=== PATIENT | male | born 1985 | race Caucasian/White ===

== ENCOUNTER 2020-12-22 11:40 | Inpatient (IN) | payer OTHER, SELFPAY ==
[2020-12-22] VITALS (11 sets, daily range): BP systolic 108–141; BP diastolic 73–98; PULSE 108–134; RESP 16–18; TEMP 36.2–36.9; O2SAT 96–100; BMI 17.6
--- NOTE | ~2020-12-22 | US_ITS ---
US abdomen limited DATE: 12/22/2020 13:35 INDICATION: Elevated liver function tests. Hepatitis C. TECHNIQUE: Real-time imaging and Doppler analysis of liver, pancreas, gallbladder areas COMPARISON: None FINDINGS: Coarsened echotexture of liver. No discrete hepatic mass lesion is noted. There is normal h epatopedal portal venous flow direction. There is sludge and/or debris in the dependent gallbladder. No gallstones or gallbladder wall thicken ing or abnormal pericholecystic fluid collection are evident. Negative sonographic Henson's sign. The common bile duct measures 3.7 mm, normal. No pancreatic mass lesion is evident. IMPRESSION: Nonspecific coarsened echotexture of the liver Sludge and/or debris in the dependent gallbladder; negative sonographic Henson's sign Reviewed, dictated and finalized at [facility] Reviewed, dictated and finalized at [facility] IMPRESSION: Nonspecific coarsened echotexture of the liver Sludge and/or debris in the dependent gallbladder; negative sonographic Henson' s sign
--- NOTE | ~2020-12-22 | CT_ITS ---
EXAMINATION: CTA chest PE abdomen pel DATE: 12/22/2020 17:37 INDICATION: Tachycardia. Abdominal pain. TECHNIQUE: Computed tomography (CT) pulmonary angiogram of the chest was performed with 100 mL Omnipa que-350 intravenous contrast. Additional 3D reconstructions utilizing coronal maximum intensity proje ction (MIP) were performed. CT of the abdomen and pelvis was performed with intravenous contrast util izing the same contrast bolus following a short delay. Automated exposure control and iterative recon struction technique were employed. The dose-length product was 400.49 mGy-cm. COMPARISON: None FINDINGS: Chest: Good contrast opacification of the pulmonary arteries. There is moderate streak artifact from dense c ontrast in the superior vena cava and right atrium. Mild to moderate scattered respiratory motion art ifact. Together this decreases sensitivity in the subsegmental pulmonary arteries particularly in the bilateral lower lung zones. No pulmonary embolus and. 8 x 6 mm left upper lobe nodule. No other airs pace opacities, pulmonary edema or pleural effusion. Heart size is normal. No pericardial effusion. N o pathologically enlarged thoracic lymphadenopathy. There is diffuse wall thickening along the mid to distal esophagus suspicious for esophagitis. Mild thoracic spondylosis. Abdomen/pelvis: Diffuse hepatic steatosis. Gallbladder, spleen, pancreas, bilateral adrenal glands and right kidney a re normal. 11 mm left renal cyst. Bowels including the appendix are normal. Latter is normal. Prostat omegaly measuring 4.9 x 3.4 cm. No free intraperitoneal gas or fluid. No pathologically enlarged abdo sara or pelvic lymphadenopathy. Mild lumbar spondylosis. IMPRESSION: 1. No pulmonary embolism. Sensitivity is significantly decreased in some of the subsegmental pulmonar y arteries particularly at the lung bases due to primarily to motion artifact. 2. Comment diffuse wall thickening of the mid to distal esophagus consistent with esophagitis. 3. Diffuse hepatic steatosis. 4. Prostatomegaly. Reviewed, dictated and finalized at [facility] IMPRESSION: 1. No pulmonary embolism. Sensitivity is significantly decreased in some of the subsegmental pulmonary arteries particularly at the lung bases due to primaril y to motion artifact. 2. Comment diffuse wall thickening of the mid to distal esophagus consistent wi th esophagitis. 3. Diffuse hepatic steatosis. 4. Prostatomegaly.
[2020-12-22 12:06] LABS: Basophils Percent Auto 0.6 % (0.2-1.2); Hemoglobin 14.7 g/dL (14.0-18.0); Immature Granulocyte Absolute 0.01 K/mm3 (0.00-0.031); Immature Granulocyte Percent A 0.2 % (0-0.5); Lymphocytes Absolute Auto 0.71 K/mm3 (0.9-3.2); Lymphocytes Percent Auto 15.4 % (18.3-44.2); Mean Corpuscular HGB Conc 35.9 g/dl (32-36); Mean Corpuscular Hemoglobin 34.2 pg (26-34); Mean Corpuscular Volume 95.3 fl (80-100); Mean Platelet Volume 10.3 fl (7.4-10.4); Monocytes Absolute Auto 0.6 K/mm3 (0.1-0.6); Monocytes Percent Auto 13.4 % (2.6-8.5); Neutrophils Absolute Auto 3.3 K/mm3 (1.3-6.7); Neutrophils Percent Auto 70.4 % (45.5-73.1); Platelet Count Result 88 k/mm3 (150-375); Red Cell Distribution Width 12.5 % (11.5-14.5); White Blood Count 4.6 K/mm3 (4.5-10.0)
[2020-12-22 12:43] LABS: Alanine Aminotransferase 95 U/L (4-50); Albumin Level > 6.0 g/dL (3.5-5.1); Alkaline Phosphatase 93 U/L (38-126); Anion Gap 37 mmol/L (8-16); Aspartate Amino Transferase 256 U/L (17-59); Bilirubin,Total 3.2 mg/dL (0.2-1.3); Blood Urea Nitrogen 22 mg/dL (9-20); Calcium 11.9 mg/dL (8.4-10.2); Carbon Dioxide 18 mmol/L (22-30); Chloride 81 mmol/L (98-107); Estimated CRCL calculation 71 ml/min; Estimated Glomerular Filt Rate > 60; Glucose 151 mg/dL (65-110); Lipase 422 U/L (23-300); Potassium 3.9 mmol/L (3.4-5.0); Sodium 136 mmol/L (137-145)
--- NOTE | 2020-12-22 12:45 | ED.NAVMDI ---
HPI - Nausea/Vomiting/Diarrhea General Chief complaint: Nausea/Vomiting/Diarrhea Stated complaint: vomiting Time Seen by Provider: 12/22/20 12:36 Source: patient Mode of arrival: ambulatory Limitations: no limitations History of Present Illness HPI Narrative: 35-year-old male history of alcohol abuse, alcohol withdrawal brought in by family for intractable nausea vomiting. Patient states last drink last night. Does have a history of withdrawals. Does complain of some dark vomiting. No melena. No abdominal pain. Unable to keep down food or fluids. Arrives pale diaphoretic and tachycardic answering all questions without difficulty MD elicited complaint: nausea, vomiting and diarrhea Pertinent past history: alcohol abuse Onset (ago): day(s) (2) Description of vomiting: continuous Associated nausea: Yes Associated abdominal pain: No Exacerbating factors: eating and alcohol intake Relieving factors: none Context: alcohol abuse and other (States recently diagnosed with hepatitis C) Associated symptoms: diaphoresis, malaise, nausea/vomiting and anxiety Treatment prior to arrival: none Related Data Allergies Allergy/AdvReac Type Severity Reaction Status Date / Time No Known Allergies Allergy Verified 12/24/20 14:25 Review of Systems Review of Systems: CONSTITUTIONAL: no fever, no weight loss, no confusion EYES: no vision changes, no eye pain ENT: no rhinorrhea, no sore throat, no difficulty swallowing CARDIOVASCULAR: no chest pain, no leg edema, positive for palpitations RESPIRATORY: no cough, no shortness of breath, no hemoptysis GASTROINTESTINAL: no abdominal pain, no nausea, positive vomiting, psoitive diarrhea GENITOURINARY: no flank pain, no dysuria, no hematuria SKIN: no rash, no jaundice, diaphoretic MUSCULOSKELETAL: no back pain, no trauma. NEUROLOGIC: No headache, no dizziness, no focal weakness PSYCHIATRIC: No hallucinations, no suicidal ideation PMFSH Past Medical History Medical History (Updated 12/25/20 @ 16:10 by Sergio Heard MD) Alcoholic hepatitis Coffee ground emesis Erosive esophagitis Hepatitis C History of heroin abuse Thrombocytopenia Tobacco abuse Surgical History Surgical History No pertinent past surgical history Family History Family History Mother Hypercholesterolemia Father Esophageal cancer Social History Social History Social History: the patient is currently unemployed and lives with his girlfriend. He has no children. Patient does not have a durable power security management specialist for healthcare. The patient desires to be a full code. The patient has a history of heroin use. Occasionally uses marijuana. Patient stated that he drinks a pt vodka every day. Smoking packs per day: 0.5 Smoking cigarettes per day: 10.0 Years smoked: 6 Smoking pack-years: 3.00 Smoking status: Light tobacco smoker Tobacco type: cigarettes Second hand tobacco smoke exposure: Yes Alcohol intake: current Substance use: current Substance use type: marijuana Other substance usage details: Drinks 1 pint of vodka daily, sometimes more Spiritual care concerns: No Exam Narrative: General: alert, afebrile, answering all questions appropriately Head: normocephalic, atraumatic Eyes: EOMI bilaterally, anicteric, no injection ENT: dry mucous membranes, oropharynx patent, no rhinorrhea Neck: supple, trachea midline, no JVD Chest: equal chest rise bilaterally, no chest wall trauma noted Lungs: clear to auscultation bilaterally, respirations unlabored CV: tachycardia, no CINDY B, calf size equal bilaterally Abd: soft, non-distended, non-tender, no rebound, no gaurding, negative Henson's Guaiac negative, yellow stool. EXT: no deformity noted, moving all extremities equally Skin: warm, diaphoretic, pale Neuro: alert, oriented
[2020-12-22] MEDS: SODIUM CHLORIDE 0.9% IV 1,000 ML 999 ML IV CONT ×2 (12:56→14:35)
[2020-12-22] MEDS: ONDANSETRON INJ 4 MG/2 ML VIAL IV PUSH (12:57)
[2020-12-22] MEDS: diazePAM INJ (*CRX) 10 MG/2 ML SYRINGE IV PUSH ×2 (13:04→14:36)
[2020-12-22 13:10] LABS: Ethanol 210 mg/dL (<10)
[2020-12-22 13:22] LABS: Partial Thromboplastin Time 25.3 SECONDS (22.3-36.8)
[2020-12-22] MEDS: METOCLOPRAMIDE HCL INJ 10 MG/2 ML VIAL IV PUSH (14:44)
[2020-12-22] MEDS: diphenhydrAMINE HCl INJ 50 MG/ML VIAL 25 MG IV PUSH (14:45)
--- NOTE | 2020-12-22 15:16 | ECG_ITS ---
Measurements Intervals [place] Rate: 116 P: 69 UT: 182 QRS: 168 QRSD: 100 T: 61 QT: 313 QTc: 436 Interpretive Statements SINUS TACHYCARDIA RIGHT AXIS DEVIATION POOR R WAVE PROGRESSION, ANTERIOR LEADS ABNORMAL ECG Electronically Signed On 12-22-2020 17:21:11 CDT by Trae Kenney D.O.
--- NOTE | 2020-12-22 15:16 | PC.NURSE ---
I did not obtain the EKG on this pt. at 1202 or present it to a
--- NOTE | 2020-12-22 16:29 | ECG_ITS ---
Measurements Intervals [place] Rate: 116 P: 57 MN: 152 QRS: 204 QRSD: 96 T: 68 QT: 313 QTc: 436 Interpretive Statements SINUS TACHYCARDIA RIGHT AXIS DEVIATION POOR R WAVE PROGRESSION, ANTERIOR LEADS BASELINE WANDER- I, II ABNORMAL ECG Electronically Signed On 12-24-2020 15:23:56 CDT by Trae Kenney D.O.
[2020-12-22 16:46] LABS: Lactic Acid Reflex 3.6 mmol/L (0.7-2.1)
[2020-12-22 17:26] LABS: Add Urine Microscopic? YES; Appearance Urine Clear (Clear); Bilirubin Urine Negative (Negative); Blood Urine 2+ (Negative); Color Urine Amber (Yellow); Glucose Urine UA Negative (Negative); Hyaline Casts Urine 20-29 /lpf; Ketones Urine 2+ mg/dL (Negative); Leukocyte Esterase Ur Negative LEU/UL (Negative); Mucus Urine Rare /lpf; Nitrate Urine Negative (Negative); Protein Urine 3+ mg/dL (Negative); Specific Grav Ur 1.026 (1.001-1.035); Squamous Epithelial Cell Urine Rare /hpf (Few); WBC Urine 0-3 /hpf
[2020-12-22] MEDS: PANTOPRAZOLE SODIUM IV 40 MG VIAL 80 MG IV PUSH (19:18)
[2020-12-22 19:36] LABS: Reflex Lactic Acid Yes or No Add Lactic
--- NOTE | 2020-12-22 21:27 | ADMGEN ---
This patient, Alfred Ernst, was admitted to IMU Room 214-01. Patient/family oriented to hospital policies and general routines including ID bracelet, bed and alarms, visiting hours, pain management, procedures, bathroom and other care routines, personal items, smoking policy, room service/diet, and visiting hours. Information on how to activate the Rapid Response Team has been discussed. Patient/Family are encouraged to report perceived risks to care and to ask questions if they do not understand what they are told or what they should do.
[2020-12-22 21:36] LABS: Lactic Acid 2.8 mmol/L (0.7-2.1)
--- NOTE | 2020-12-22 22:30 | PM.IMHP ---
H&P: HPI History of Present Illness Date/Time: 12/22/20 22:30Thikyle is a 35-year-old male patient who has a history of alcoholism. The patient states that he drinks a pt of alcohol a day. He has been to alcohol rehab in the past. The patient was brought in by his family due to intractable nausea and vomiting. The patient lives with his girlfriend. The patient stated that the last ME drink any alcohol was last night around midnight. He does have a history of alcohol withdrawals. The patient does have hand tremors at this time. The patient also complained of some dark vomiting. The patient denies any esophageal varices. The patient was very pale and diaphoretic and tachycardic. The patient was given IV fluids in the emergency room, Zofran IV Valium IV, Reglan, Benadryl, Protonix, and Zosyn. Chest CTA was read as no pulmonary embolus. Sensitivity is significantly decrease in some of the subsegmental pulmonary arteries particularly at the lung bases due to primarily due to motion artifact. Comment diffuse wall thickening of the mid and distal esophagus consistent with esophagitis. Diffuse hepatic steatosis. Prostatomegaly. The patient also tells me that he has hepatitis-C and that he has not gone for any treatment as of yet but he has an appointment with a specialist For treatment. Ultrasound of the abdomen was read as nonspecific coarsened echotexture of the liver. Sludge or debris in the dependent gallbladder negative sonographic Henson sign. the patient is being admitted to inpatient services on the date of service of 12/22/2020 Chief Complaint: alcohol withdrawal Review of Systems Review of Systems: All systems reviewed & are unremarkable except as noted in HPI and below Constitutional: Constitutional: Reports as per HPI and Reports no additional constitutional complaints Eyes: Eyes: Reports as per HPI and Reports no additional eye complaints ENT: Reports system reviewed and no additional complaints, except as documented and Reports Normal hearing present Cardiovascular: Cardiovascular: Reports no additional cardiovascular complaints Respiratory: Respiratory: Reports no additional respiratory complaints and Reports no additional respiratory complaints Gastrointestinal: Gastrointestinal: Reports as per HPI and Reports no additional gastrointestinal complaints Musculoskeletal: Musculoskeletal: Reports no additional musculoskeletal complaints Integumentary/Breasts: Skin/Breast: Reports system reviewed and no additional complaints, except as docu and Reports as per HPI Neurologic: Reports system reviewed and no additional complaints, except as documented, Reports as per HPI and Reports Normal hearing present Psychiatric: Psychiatric: Reports no additional psychiatric complaints and Reports as per HPI Endocrine: Endocrine: Reports no additional endocrine complaints Hematologic/Lymphatic: Hematologic/Lymphatic: Reports no additional hematologic/lymphatic complaints Allergic/Immunologic: Allergic/Immunologic: Reports no additional allergic/immunologic complaints PMF Past Medical History Medical History (Updated 12/22/20 @ 22:40 by Teresa Tee NP) Hepatitis C History of heroin abuse Tobacco abuse Surgical History Surgical History (Updated 12/22/20 @ 22:39 by Teresa Tee NP) No pertinent past surgical history Family History Family History (Updated 12/22/20 @ 22:39 by Teresa Tee NP) Mother Hypercholesterolemia Father Esophageal cancer Social History Social History (Updated 12/22/20 @ 22:40 by Teresa Tee NP) Social History: the patient is currently unemployed and lives with his girlfriend. He has no children. Patient does not have a durable power admitted attorneys for healthcare. The patient desires to be a full code. The patient has a history of heroin use. Occasionally uses marijuana. Patient stated that he drinks a pt vodka every day. Smoking packs per day: 0.5 Smoking cigarette
[2020-12-22] MEDS: THIAMINE HCL INJ 100 MG, FOLIC ACID INJ 1 MG, MULTIVITAMINS-12 INJ VIAL 1 5 ML, MULTIVI... 125 MG IV CONT (23:45)
[2020-12-22] MEDS: LORazepam INJ (*CRX) 2 MG/ML VIAL 1 MG IV PUSH (23:46)
[2020-12-22] MEDS: chlordiazePOXIDE (*CRX) 25 MG CAPSULE PO (23:46)
[2020-12-23] VITALS (19 sets, daily range): BP systolic 127–149; BP diastolic 76–100; PULSE 70–135; RESP 16–20; TEMP 36.1–36.8; O2SAT 95–100
[2020-12-23 00:04] LABS: Glucose Point of Care 170 mg/dl (65-105)
[2020-12-23] MEDS: chlordiazePOXIDE (*CRX) 25 MG CAPSULE PO ×2 (04:22→22:31)
[2020-12-23 04:55] LABS: Basophils Percent Auto 0.5 % (0.2-1.2); Hematocrit 30.6 % (42.0-52.0); Immature Granulocyte Absolute 0.01 K/mm3 (0.00-0.031); Immature Granulocyte Percent A 0.3 % (0-0.5); Lymphocytes Absolute Auto 1.15 K/mm3 (0.9-3.2); Lymphocytes Percent Auto 29.3 % (18.3-44.2); Mean Corpuscular HGB Conc 35.9 g/dl (32-36); Mean Corpuscular Hemoglobin 33.3 pg (26-34); Mean Corpuscular Volume 92.7 fl (80-100); Mean Platelet Volume 10.8 fl (7.4-10.4); Monocytes Absolute Auto 0.7 K/mm3 (0.1-0.6); Monocytes Percent Auto 16.6 % (2.6-8.5); Neutrophils Absolute Auto 2.1 K/mm3 (1.3-6.7); Neutrophils Percent Auto 53.3 % (45.5-73.1); Platelet Count Result 52 k/mm3 (150-375); Red Cell Distribution Width 11.9 % (11.5-14.5); White Blood Count 3.9 K/mm3 (4.5-10.0)
[2020-12-23 05:54] LABS: Albumin Level 4.3 g/dL (3.5-5.1); Alkaline Phosphatase 57 U/L (38-126); Anion Gap 9 mmol/L (8-16); Aspartate Amino Transferase 164 U/L (17-59); Bilirubin Direct 0.3 mg/dL (0-0.3); Bilirubin,Total 3.6 mg/dL (0.2-1.3); Blood Urea Nitrogen 19 mg/dL (9-20); Carbon Dioxide 32 mmol/L (22-30); Chloride 89 mmol/L (98-107); Estimated CRCL calculation 80 ml/min; Estimated Glomerular Filt Rate > 60; Lactate Dehydrogenase 472 U/L (313-618); Potassium 3.3 mmol/L (3.4-5.0); Sodium 130 mmol/L (137-145)
[2020-12-23 06:01] LABS: Lactic Acid Reflex 1.1 mmol/L (0.7-2.1)
[2020-12-23 06:03] LABS: Alanine Aminotransferase 64 U/L (4-50); CRP < 0.5 mg/dL (<1.0); Calcium 9.5 mg/dL (8.4-10.2); Glucose 92 mg/dL (65-110); Lipase 1332 U/L (23-300); Magnesium 2.1 mg/dL (1.6-2.3)
[2020-12-23 06:58] LABS: Phosphorus < 1.0 mg/dL (2.5-4.5)
[2020-12-23] MEDS: NICOTINE (*PBKC) 14 MG PATCH 1 PATCH TRANSDERM (07:53)
[2020-12-23] MEDS: PANTOPRAZOLE SODIUM IV 40 MG VIAL IV PUSH ×2 (07:56→19:37)
[2020-12-23] MEDS: THIAMINE HCL 200 MG/2 ML VIAL 100 MG IV PUSH (07:56)
--- NOTE | 2020-12-23 08:29 | PM.IMPN ---
Progress Note: A&P Additional Plan START OF DOCTOR [facility]?S PROGRESS NOTE Subjective: At the present time the patient offers no complaints. He denies fever, rigors, nausea, vomiting, cough, wheeze, abdominal pain, chest pain, dyspnea, or any other constitutional complaints. I have explained to the patient his current medical condition plan care and I have answered all his questions Objective: General: -Alert -No acute distress -No dyspnea -No tachypnea Heart: -Regular rate -Regular rhythm -No murmurs -No gallops -No rubs Lungs: -No wheeze -No rhonchi -No rales Abdomen: -Normal bowel sounds in all four quadrants -No rebound -No guarding -No tenderness Extremities: -2/4 pulse in all four extremities -No clubbing -No cyanosis -No edema Additional Details / Additional Findings / Exceptions / Miscellaneous: Pertinent Laboratory Results / Pertinent Radiology Results / Pertinent Diagnostic Results / Pertinent Vital Signs: Blood pressure 142/84, white blood count 3.9, hemoglobin 11, platelet count 18666, sodium 130, potassium 3.3, Tobra is 3.6, AST 164, ALT 64, lipase 1332 Assessment / Plan: Alcohol abuse with alcohol withdrawal. Seizure precautions. IV p.r.n. Ativan per [facility] protocol. Vitamin B12 1000 mg p.o. daily plus thiamine 100 mg p.o. daily plus folic acid 1 mg p.o. daily plus multivitamin 1 tab p.o. daily. Patient require referral for alcohol rehabilitation upon discharge Esophagitis. Likely sequelae of history of alcohol abuse. Protonix 40 mg IV q.12 hours plus sucralfate 1 g p.o. q.6 hours. I will follow up on Gastroenterology's findings recommendation Transaminitis. Likely sequelae of history of alcohol abuse in conjunction with hepatitis-C. Will monitor LFTs periodically with CMP along with PT/INR Hepatic steatosis Prostatomegaly. PSA level pending. Outpatient follow-up with Urology upon discharge Hepatitis-C. Outpatient follow-up with Gastroenterology for treatment upon discharge History of heroin abuse. The patient will be counseled regarding hair when this cessation Smoker. Patient counseled regarding smoking cessation. Nicotine patch 14 mg daily Pancytopenia. Likely sequelae of history of alcohol abuse. We will monitor CBC and intermittently. TSH within normal limits. Check free T4, B12, folate, ferritin, iron panel, fecal occult blood Hyponatremia. Likely a sequelae of history of alcohol abuse/beer potomania. Monitor sodium levels intermittently. IV normal saline 100 mL/hour Hypokalemia. Monitor potassium levels intermittently supplemented as necessary Hypophosphatemia. Will monitor phosphorus levels intermittently. Neutra-Phos 1 packet p.o. q.6 hours. Elevated lipase. Clinically no signs/symptoms of pancreatitis. Radiographic studies did not do not demonstrate pancreatitis. Will monitor serum lipase levels intermittently. NPO. IV normal saline 100 mL/hour Microscopic hematuria. Outpatient follow-up with Urology upon discharge DVT prophylaxis. Bilateral CT Disposition: END OF DO[facility]?S PROGRESS NOTE Subjective Date/time seen: 12/23/20 08:29 Objective Data Vital Signs Vital Signs: Vital Signs - 24 hr 12/22/20 11:43 12/22/20 12:37 12/22/20 14:46 Temperature 98.3 F Pulse Rate 134 H 111 H 127 H Pulse Rate [Monitor] Respiratory Rate 18 18 18 Blood Pressure 108/73 134/92 H 127/87 Pulse Oximetry 97 99 100 12/22/20 16:41 12/22/20 21:21 12/22/20 21:24 Temperature 97.2 F L Pulse Rate 108 H 120 H 123 H Pulse Rate [Monitor] Respiratory Rate 18 16 Blood Pressure 141/98 H 132/75 Pulse Oximetry 99 97 12/22/20 21:30 12/22/20 21:36 12/22/20 22:00 Temperature Pulse Rate 126 H Pulse Rate [Monitor] 110 H Respiratory Rate Blood Pressure Pulse Oximetry 97 12/22/20 22:36 12/22/20 23:18 12/23/20 00:00 Temperature 98.4 F Pulse Rate 134 H 92 Pulse Rate [Monitor] 126 H
[2020-12-23] MEDS: SODIUM CHLORIDE 0.9% IV 1,000 ML 100 ML IV CONT ×2 (09:18→18:26)
[2020-12-23] MEDS: THERAPEUTIC MULTIVITAMINS/MINERALS TAB (*BKC) 1 TABLET PO (09:19)
[2020-12-23] MEDS: POTASSIUM CHLORIDE 20 MEQ TABLET 40 MEQ PO (09:19)
[2020-12-23] MEDS: FOLIC ACID 1 MG TABLET PO (09:20)
[2020-12-23] MEDS: THIAMINE HCL 100 MG TABLET PO (09:20)
[2020-12-23] MEDS: CYANOCOBALAMIN 1,000 MCG TABLET 1000 MCG PO (09:20)
[2020-12-23] MEDS: LORazepam INJ (*CRX) 2 MG/ML VIAL 1 MG IV PUSH ×3 (09:28→22:32)
[2020-12-23 09:40] LABS: Iron 143 ug/dL (49-181)
[2020-12-23 09:49] LABS: Percent Iron Saturation 93 % (20-50)
[2020-12-23 09:58] LABS: Free T4 Free Thyroxine 1.06 ng/mL (0.78-2.19)
[2020-12-23 10:38] LABS: Folic Acid > 20.0 ng/mL (2.76->20); Vitamin B12 > 1000.0 pg/mL (239-931)
[2020-12-23] MEDS: ONDANSETRON INJ 4 MG/2 ML VIAL IV PUSH (10:49)
[2020-12-23 11:27] LABS: Ferritin > 2000.00 ng/mL (17.9-464)
[2020-12-23 11:36] LABS: Glucose Point of Care 127 mg/dl (65-105)
[2020-12-23] MEDS: SUCRALFATE 1 GM TABLET PO ×3 (11:53→19:37)
[2020-12-23] MEDS: POTASSIUM/PHOSPHORUS/SODIUM 1.5 GM PACKET 1 PACKET PO ×3 (11:53→22:30)
--- NOTE | 2020-12-23 12:37 | WPDGICN ---
Assessment and Plan Additional Plan GI Consultation Dr. Parra December, This is a 35 year old patient with a history of Hepatitis C (untreated), alcohol abuse and heroin abuse who now presents for evaluation of nausea, vomiting and hematemesis. Patient is seen at the request of the Hospitalist service to evaluate for same. The patient does not have a primary care provider. Patient was admitted with nausea and vomiting beginning 12-22-2020. There was dark material in the emesis. He states this is improving today. He otherwise denies abdominal pain, previous nausea or vomiting, trouble swallowing, bloating, loss of appetite or weight, early satiety, heartburn, diarrhea or constipation, rectal bleeding or melena. Patient denies fever, jaundice, scleral icterus, dark urine, light stool, itching, hot or cold intolerance, chest pain, shortness of breath at rest, light headedness, hematuria, dysuria, new cough or visual changes, easy bruising, tingling of the skin, bone pain or tremors. No history of endocarditis, rheumatic fever, dental prophylaxis, heart valve surgery, bleeding disorder or joint replacement. NKDA. Medications:none. Denies any aspirin, NSAIDS. Social history: smoker, cessation recommended. One pint of vodka daily, last was midnight Dec,. Cessation discussed. Family history: father with esophageal cancer. Physical exam: No lower extremity edema, jaundice, spider angioma, palmar erythema. Skull is normocephalic atraumatic. Sclera are non-icteric. Oropharynx is clear. Neck is supple without thyromegaly. Lungs are clear. Heart is rate and rhythm regular. S1 and S2 normal. Normal active bowel sounds. Non-tender, non-rigid, non-distended without hepatosplenomegaly or masses. No guarding. Rectal is deferred. Neuro is conscious and alert ?3. Labs: 12-23-2020 Hct 31, PTL 52. TBili 3.2 (DBili 0.3), A/P 57, AST 256, ALT 95 Ferritin >2,000. Fe 143, TIBC 153, %sat 93. B12 > 1,000. Folate > 20. TSH 3.7 12-22-2020 Hct 42, PTL 88, TBili 3.2, A/P 93, AST 256, ALT 95 EtOH 210 Imaging: RUQ U/S Hepatic Steatosis CT Hepatic Steatosis Assessment and plan: A. Nausea, vomiting and hematemesis: - Likely M-W tear > varix, ulcer, peptic disease, neoplasm - Nausea and vomiting possibly related to alcohol or other cause - Improved - No active bleed; follow H+H and transfuse prn - PPI - Avoid aspirin, NSAIDS and anticoagulants - EGD in am B. Hepatitis C: evaluation and possible treatment per [facility]. C. Abnormal LFT's and abnormal imaging-liver: - Hepatic Steatosis secondary to alcohol; cessation discussed with the patient - Thrombocytopenia secondary to liver disease; observe - Would like platelets > 50K for EGD - EtOH level high on admit - May need liver biopsy at some point - Follow LFT's for now D. 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 Patient voices understanding, agrees to proceed and provides informed consent. Thank you very much for allowing me to share in the care of your patient. Further recommendations per [facility]. Ernesto Parra M.D. (c) [phone] GI Consult Note Consult date/time: 12/23/20 12:37 HPI: Alfred Ernst is a 35 year old male [facility] Past Medical History Medical History (Updated 12/22/20 @ 22:40 by Teresa Tee NP) Hepatitis C History of heroin abuse Tobacco abuse Surgical History Surgical History (Updated 12/22/20 @ 22:39 by Teresa Tee NP) No pertinent past surgical history Family History Family History (Updated 12/22/20 @ 22:39 by Teresa Tee NP) Mother Hypercholesterolemia Father Esophageal cancer Social History Social History (Updated 12/22/20 @ 22:40
[2020-12-23 17:21] LABS: Amphetamine Screen Urine Negative (Negative); Barbiturate Screen Urine Negative (Negative); Benzodiazepines Screen Urine Positive (Negative); Cannabinoid Screen Urine Positive (Negative); Cocaine Screen Urine Negative (Negative); Methadone Screen Urine Negative (Negative); Opiate Screen Urine Negative (Negative); Phencyclidine Screen Urine Negative (Negative)
[2020-12-23 18:17] LABS: Glucose Point of Care 96 mg/dl (65-105)
[2020-12-23 23:25] LABS: Glucose Point of Care 77 mg/dl (65-105)
[2020-12-24] VITALS (20 sets, daily range): BP systolic 110–156; BP diastolic 67–109; PULSE 40–110; RESP 18–21; TEMP 36.2–37.1; O2SAT 97–100; BMI 19.9
[2020-12-24] MEDS: DEXTROSE 5%/0.9% SOD CHL 1,000 ML 100 ML IV CONT ×2 (00:10→09:56)
[2020-12-24 04:14] LABS: Glucose Point of Care 97 mg/dl (65-105)
[2020-12-24 04:41] LABS: Basophils Percent Auto 0.3 % (0.2-1.2); Eosinophils Percent Auto 0.9 % (0-4.4); Hematocrit 32.2 % (42.0-52.0); Hemoglobin 11.4 g/dL (14.0-18.0); Immature Granulocyte Absolute 0.01 K/mm3 (0.00-0.031); Immature Granulocyte Percent A 0.3 % (0-0.5); Immature Platelet Fraction Pct 10.8 % (0.9-11.2); Lymphocytes Absolute Auto 1.02 K/mm3 (0.9-3.2); Lymphocytes Percent Auto 32.1 % (18.3-44.2); Mean Corpuscular HGB Conc 35.4 g/dl (32-36); Mean Corpuscular Hemoglobin 33.9 pg (26-34); Mean Corpuscular Volume 95.8 fl (80-100); Mean Platelet Volume 10.9 fl (7.4-10.4); Monocytes Absolute Auto 0.3 K/mm3 (0.1-0.6); Monocytes Percent Auto 9.7 % (2.6-8.5); Neutrophils Absolute Auto 1.8 K/mm3 (1.3-6.7); Neutrophils Percent Auto 56.7 % (45.5-73.1); Platelet Count Result 44 k/mm3 (150-375); Red Blood Count 3.36 M/mm3 (4.6-6.20); Red Cell Distribution Width 11.8 % (11.5-14.5); White Blood Count 3.2 K/mm3 (4.5-10.0)
[2020-12-24 04:49] LABS: INR 1.1; Prothrombin Time 13.8 Seconds (11.1-14.7)
[2020-12-24 05:10] LABS: Alanine Aminotransferase 67 U/L (4-50); Albumin Level 3.5 g/dL (3.5-5.1); Alkaline Phosphatase 48 U/L (38-126); Anion Gap 5 mmol/L (8-16); Aspartate Amino Transferase 179 U/L (17-59); Bilirubin,Total 4.6 mg/dL (0.2-1.3); Blood Urea Nitrogen 16 mg/dL (9-20); Calcium 8.6 mg/dL (8.4-10.2); Carbon Dioxide 30 mmol/L (22-30); Chloride 96 mmol/L (98-107); Estimated CRCL calculation 114 ml/min; Estimated Glomerular Filt Rate > 60; Glucose 93 mg/dL (65-110); Potassium 3.2 mmol/L (3.4-5.0); Sodium 131 mmol/L (137-145)
[2020-12-24 05:29] LABS: Phosphorus < 1.0 mg/dL (2.5-4.5)
[2020-12-24] MEDS: SUCRALFATE 1 GM TABLET PO ×3 (05:45→21:32)
[2020-12-24] MEDS: chlordiazePOXIDE (*CRX) 25 MG CAPSULE PO (05:45)
[2020-12-24] MEDS: POTASSIUM/PHOSPHORUS/SODIUM 1.5 GM PACKET 1 PACKET PO ×2 (05:45→16:41)
[2020-12-24 07:06] LABS: Lipase 5226 U/L (23-300)
--- NOTE | 2020-12-24 09:05 | PM.IMPN ---
Progress Note: A&P Additional Plan START OF [facility]?S PROGRESS NOTE Subjective: The patient indicates that he exhibited some rigors overnight had some nausea. Aside from this endorses no complaints. He denies fever, vomiting, cough, wheeze, abdominal pain, chest pain. Have explained to the patient his current medical condition plan of care and I have answered all questions Objective: General: -Alert -No acute distress -No dyspnea -No tachypnea Heart: -Regular rate -Regular rhythm -No murmurs -No gallops -No rubs Lungs: -No wheeze -No rhonchi -No rales Abdomen: -Normal bowel sounds in all four quadrants -No rebound -No guarding -No tenderness Extremities: -2/4 pulse in all four extremities -No clubbing -No cyanosis -No edema Additional Details / Additional Findings / Exceptions / Miscellaneous: Moderately tremulous Pertinent Laboratory Results / Pertinent Radiology Results / Pertinent Diagnostic Results / Pertinent Vital Signs: Blood pressure 156/104, pulse 94, white blood cell count 3.2, hemoglobin 11.4, platelet count 04190, sodium 131, potassium 3.2, phosphorus less than 1, lipase 5226, total bilirubin is 4.6, AST 179, ALT 67 Assessment / Plan: Alcohol abuse with alcohol withdrawal. Seizure precautions. IV p.r.n. Ativan per [facility] protocol. Vitamin B12 1000 mg p.o. daily plus thiamine 100 mg p.o. daily plus folic acid 1 mg p.o. daily plus multivitamin 1 tab p.o. daily. Patient require referral for alcohol rehabilitation upon discharge Esophagitis. Likely sequelae of history of alcohol abuse. Protonix 40 mg IV q.12 hours plus sucralfate 1 g p.o. q.6 hours. I will follow up on Gastroenterology's findings recommendation. Patient schedule for EGD with Gastroenterology on December 24, 2020 Transaminitis. Likely sequelae of history of alcohol abuse in conjunction with hepatitis-C. Will monitor LFTs periodically with CMP along with PT/INR Hepatic steatosis Prostatomegaly. PSA level pending. Outpatient follow-up with Urology upon discharge Hepatitis-C. Outpatient follow-up with Gastroenterology for treatment upon discharge Polysubstance abuse. Patient has history of heroin use and current urine drug screen positive for benzodiazepines as well as cannabinoids Hypertension. Metoprolol 25 mg p.o. b.i.d. Smoker. Patient counseled regarding smoking cessation. Nicotine patch 14 mg daily Pancytopenia. Likely sequelae of history of alcohol abuse. We will monitor CBC and intermittently. TSH within normal limits. Check free T4, B12, folate, ferritin, iron panel, fecal occult blood Hyponatremia. Likely a sequelae of history of alcohol abuse/beer potomania. Monitor sodium levels intermittently. IV normal saline 100 mL/hour Hypokalemia. Monitor potassium levels intermittently supplemented as necessary Hypophosphatemia. Will monitor phosphorus levels intermittently. Neutra-Phos 1 packet p.o. q.6 hours. Elevated lipase. Clinically no signs/symptoms of pancreatitis. Radiographic studies did not do not demonstrate pancreatitis. Will monitor serum lipase levels intermittently. NPO. IV normal saline 100 mL/hour Microscopic hematuria. Outpatient follow-up with Urology upon discharge DVT prophylaxis. Bilateral CT Disposition: END OF DOCTOR [facility]?S PROGRESS NOTE Subjective Date/time seen: 12/24/20 09:05 Objective Data Vital Signs Vital Signs: Vital Signs - 24 hr 12/23/20 09:26 12/23/20 10:00 12/23/20 11:50 Temperature 97.0 F L Pulse Rate 97 122 H Pulse Rate [Monitor] Respiratory Rate 16 Blood Pressure 140/85 Pulse Oximetry 95 97 12/23/20 12:00 12/23/20 14:00 12/23/20 16:00 Temperature Pulse Rate 135 H 88 110 H Pulse Rate [Monitor] Respiratory Rate Blood Pressure Pulse Oximetry 12/23/20 16:44 12/23/20 18:00 12/23/20 19:32 Temperature 97.5 F L Pulse Rate 121 H 93 Pulse Rate [Monitor] 101 H Respirato
[2020-12-24] MEDS: LORazepam INJ (*CRX) 2 MG/ML VIAL 1 MG IV PUSH ×2 (09:55→16:47)
[2020-12-24] MEDS: PANTOPRAZOLE SODIUM IV 40 MG VIAL IV PUSH ×2 (09:56→21:33)
[2020-12-24] MEDS: METOPROLOL TARTRATE 25 MG TABLET PO ×2 (09:57→21:33)
[2020-12-24] MEDS: THIAMINE HCL 100 MG TABLET PO (09:57)
[2020-12-24] MEDS: THERAPEUTIC MULTIVITAMINS/MINERALS TAB (*BKC) 1 TABLET PO (09:57)
[2020-12-24] MEDS: CYANOCOBALAMIN 1,000 MCG TABLET 1000 MCG PO (09:58)
[2020-12-24] MEDS: NICOTINE (*PBKC) 14 MG PATCH 1 PATCH TRANSDERM (09:58)
[2020-12-24] MEDS: FOLIC ACID 1 MG TABLET PO (09:58)
[2020-12-24 12:46] LABS: Glucose Point of Care 104 mg/dl (65-105)
[2020-12-24] MEDS: LACTATED RINGERS 1,000 ML 150 ML IV CONT (14:28)
--- NOTE | 2020-12-24 14:39 | WPDANESEPPF ---
Anes - Initial Pre Proc Eval Procedure: Operation Date: 12/24/20 15:45 Proposed Procedures p Esophagogastroduodenoscopy - Sergio Heard MD Date/Time: 12/24/20 14:39 Surgeon: Eyad Vazquez MD Pre Op Diagnosis: Vomiting; Esophagitis; Alcohol withdrawal Patient Data Age: 35 Gender: M Height: 1.8 m Weight: 64.8 kg Last Vital Signs Temp 36.4 C 12/24/20 14:28 Pulse 73 12/24/20 14:28 Resp 20 12/24/20 14:28 BP 129/90 12/24/20 14:28 Pulse Ox 99 12/24/20 14:28 Allergies Allergy/AdvReac Type Severity Reaction Status Date / Time No Known Allergies Allergy Verified 12/24/20 14:25 Home Medications Medication Instructions Recorded Confirmed Type No Home Medications 12/22/20 12/22/20 History Laboratory Tests 12/23/20 12/23/20 12/23/20 16:46 18:09 23:21 WBC RBC Hgb Hct MCV MCH MCHC RDW Plt Count MPV Immature Gran % (Auto) Neut % (Auto) Lymph % (Auto) [place] % (Auto) Eos % (Auto) Baso % (Auto) Lymph # (Auto) [place] # (Auto) Eos # (Auto) Baso # (Auto) Abs Immat Gran (auto) Absolute Neuts (auto) Absolute Nucleated RBC Nucleated RBC % % Immature Plt Fraction PT INR Sodium Potassium Chloride Carbon Dioxide Anion Gap BUN Creatinine Estim Creat Clear Calc Estimated GFR Glucose POC Capillary Glucose 96 mg/dl mg/dl 77 mg/dl mg/dl (65-105) (65-105) Calcium Phosphorus Total Bilirubin AST ALT Alkaline Phosphatase Total Protein Albumin Lipase Urine Opiates Screen Negative (Negative) Urine Methadone Screen Negative (Negative) Ur Barbiturates Screen Negative (Negative) Ur Phencyclidine Scrn Negative (Negative) Ur Amphetamine Screen Negative (Negative) U Benzodiazepines Scrn Positive A (Negative) Urine Cocaine Screen Negative (Negative) U Cannabinoids Screen Positive A (Negative) 12/24/20 12/24/20 12/24/20 03:58 04:14 04:14 WBC RBC Hgb Hct MCV MCH MCHC RDW Plt Count MPV Immature Gran % (Auto) Neut % (Auto) Lymph % (Auto) [place] % (Auto) Eos % (Auto) Baso % (Auto) Lymph # (Auto) [place] # (Auto) Eos # (Auto) Baso # (Auto) Abs Immat Gran (auto) Absolute Neuts (auto) Absolute Nucleated RBC Nucleated RBC % % Immature Plt Fraction PT 13.8 Seconds Seconds (11.1-14.7) INR 1.1 Sodium 131 mmol/L L mmol/L (137-145) Potassium 3.2 mmol/L L mmol/L (3.4-5.0) Chloride 96 mmol/L L mmol/L (98-107) Carbon Dioxide 30 mmol/L mmol/L (22-30) Anion Gap 5 mmol/L L mmol/L (8-16) BUN 16 mg/dL mg/dL (9-20) Creatinine 0.70 mg/dL mg/dL (0.7-1.3) Estim Creat Clear Calc 114 ml/min ml/min Estimated GFR > 60 (59 - ) Glucose 93 mg/dL mg/dL (65-110) POC Capillary Glucose 97 mg/dl mg/dl (65-105) Calcium 8.6 mg/dL mg/dL (8.4-10.2) Phosphorus < 1.0 mg/dL L mg/dL (2.5-4.5) Total Bilirubin 4.6 mg/dL H mg/dL (0.2-1.3) AST 179 U/L H U/L (17-59) ALT 6
[2020-12-24] MEDS: BENZOCAINE (*SP) 60 ML SPRAY CAN (HURRICAINE) 1 SPRAY MUCOUS MEM (15:18)
[2020-12-25] VITALS (14 sets, daily range): BP systolic 121–127; BP diastolic 79–86; PULSE 71–105; RESP 18–20; TEMP 36.3–37; O2SAT 97–100
[2020-12-25] MEDS: POTASSIUM/PHOSPHORUS/SODIUM 1.5 GM PACKET 1 PACKET PO ×4 (00:07→17:25)
[2020-12-25 00:58] LABS: Glucose Point of Care 102 mg/dl (65-105)
[2020-12-25] MEDS: DEXTROSE 5%/0.9% SOD CHL 1,000 ML 100 ML IV CONT ×2 (04:13→14:10)
[2020-12-25 05:26] LABS: Basophils Percent Auto 1.1 % (0.2-1.2); Eosinophils Absolute Auto 0.1 K/mm3 (0-0.3); Eosinophils Percent Auto 2.5 % (0-4.4); Hematocrit 31.9 % (42.0-52.0); Hemoglobin 11.1 g/dL (14.0-18.0); Immature Granulocyte Absolute 0.01 K/mm3 (0.00-0.031); Immature Granulocyte Percent A 0.4 % (0-0.5); Immature Platelet Fraction Pct 13.3 % (0.9-11.2); Lymphocytes Absolute Auto 0.94 K/mm3 (0.9-3.2); Lymphocytes Percent Auto 33.6 % (18.3-44.2); Mean Corpuscular HGB Conc 34.8 g/dl (32-36); Mean Corpuscular Hemoglobin 33.9 pg (26-34); Mean Corpuscular Volume 97.6 fl (80-100); Mean Platelet Volume 12.2 fl (7.4-10.4); Monocytes Absolute Auto 0.4 K/mm3 (0.1-0.6); Monocytes Percent Auto 13.2 % (2.6-8.5); Neutrophils Absolute Auto 1.4 K/mm3 (1.3-6.7); Neutrophils Percent Auto 49.2 % (45.5-73.1); Platelet Count Result 47 k/mm3 (150-375); Red Blood Count 3.27 M/mm3 (4.6-6.20); Red Cell Distribution Width 11.8 % (11.5-14.5); White Blood Count 2.8 K/mm3 (4.5-10.0)
[2020-12-25 05:41] LABS: INR 1.1; Prothrombin Time 13.9 Seconds (11.1-14.7)
[2020-12-25 05:47] LABS: Alanine Aminotransferase 86 U/L (4-50); Albumin Level 3.2 g/dL (3.5-5.1); Alkaline Phosphatase 62 U/L (38-126); Anion Gap 3 mmol/L (8-16); Aspartate Amino Transferase 202 U/L (17-59); Bilirubin,Total 5.2 mg/dL (0.2-1.3); Blood Urea Nitrogen 7 mg/dL (9-20); Calcium 8.9 mg/dL (8.4-10.2); Carbon Dioxide 27 mmol/L (22-30); Chloride 105 mmol/L (98-107); Estimated CRCL calculation 131 ml/min; Estimated Glomerular Filt Rate > 60; Glucose 108 mg/dL (65-110); Potassium 3.7 mmol/L (3.4-5.0); Sodium 135 mmol/L (137-145)
[2020-12-25] MEDS: SUCRALFATE 1 GM TABLET PO ×4 (05:55→20:53)
[2020-12-25] MEDS: chlordiazePOXIDE (*CRX) 25 MG CAPSULE PO ×4 (05:56→17:24)
[2020-12-25 05:57] LABS: Lipase 2615 U/L (23-300); Phosphorus < 0.5 mg/dL (2.5-4.5)
[2020-12-25] MEDS: FOLIC ACID 1 MG TABLET PO (09:14)
[2020-12-25] MEDS: THERAPEUTIC MULTIVITAMINS/MINERALS TAB (*BKC) 1 TABLET PO (09:14)
[2020-12-25] MEDS: METOPROLOL TARTRATE 25 MG TABLET PO ×2 (09:14→20:53)
[2020-12-25] MEDS: CYANOCOBALAMIN 1,000 MCG TABLET 1000 MCG PO (09:14)
[2020-12-25] MEDS: THIAMINE HCL 100 MG TABLET PO (09:15)
[2020-12-25] MEDS: PANTOPRAZOLE SODIUM IV 40 MG VIAL IV PUSH ×2 (09:15→20:54)
[2020-12-25] MEDS: NICOTINE (*PBKC) 14 MG PATCH 1 PATCH TRANSDERM (09:15)
[2020-12-25] MEDS: LORazepam INJ (*CRX) 2 MG/ML VIAL 1 MG IV PUSH (11:03)
[2020-12-25 12:40] LABS: Glucose Point of Care 102 mg/dl (65-105)
--- NOTE | 2020-12-25 14:12 | PC.NURSE ---
This patient, Alfred Ernst, was transferred to [[id number]] on 12/25/20 at 1412. Personal belongings sent with patient. Report given to [Hilda HERNANDEZ]. Appropriate documentation sent with patient.
--- NOTE | 2020-12-25 14:20 | PC.NURSE ---
This patient, Alfred Ernst, was received from IMU room 214 on 12/25/20 at 1420. Patient oriented to unit policies and routines
--- NOTE | 2020-12-25 16:08 | WPDGIPROGNO ---
Progress Note: A&P Assessment and Plan (1) Erosive esophagitis: Code(s): K22.10 - Ulcer of esophagus without bleeding Status: Acute Assessment and Plan: now on protonix twice daily, he also will need to quit drinking tolerating diet (2) Alcoholic hepatitis: Code(s): K70.10 - Alcoholic hepatitis without ascites Status: Acute Assessment and Plan: labs consistent with alcoholic hepatitis supportive care nutritional support, thiamine (3) Coffee ground emesis: Code(s): K92.0 - Hematemesis Status: Acute Assessment and Plan: no more episodes (4) Alcohol withdrawal: Qualifiers: Complication of substance-induced condition: uncomplicated Qualified Code(s): F10.230 - Alcohol dependence with withdrawal, uncomplicated Code(s): F10.239 - Alcohol dependence with withdrawal, unspecified Status: Acute Assessment and Plan: monitor [facility] protocol (5) Thrombocytopenia: Code(s): D69.6 - Thrombocytopenia, unspecified Status: Acute Assessment and Plan: from alcohol but also wonder if he could have cirrhosis we can follow-up in office (6) Hepatitis C: Code(s): B19.20 - Unspecified viral hepatitis C without hepatic coma Status: Chronic Assessment and Plan: treatment naive he can follow-up in office if willing to get treatment also will need to quit alcohol Subjective Date/time seen: 12/25/20 16:08 Interval history: no new issues, tolerating diet egd yesterday with erosive esophagitis Review of Systems Review of Systems: All systems reviewed & are unremarkable except as noted in HPI and below Exam Const: General: comfortable HENMT: General nose exam: Normal nares present Eyes: Sclera: sclerae normal Neck: Neck: supple Resp: Auscultation: clear to auscultation bilaterally Cardio: Rate: regular rate GI: GI Palp: Yes Soft to palpation, No Tenderness to palpation present (GI) and No Guarding due to palpation present (GI) Auscultation: normal bowel sounds Skin: General skin exam: no rashes or lesions noted Neuro: Speech: normal speech Motor exam (neuro): Normal motor muscle tone present throughout Extrem: General: normal to inspection Psych: Affect: Anxious affect present Objective Data Vital Signs Vital Signs: Vital Signs - 24 hr 12/24/20 18:00 12/24/20 20:00 12/24/20 21:33 Temperature 97.8 F Pulse Rate 97 88 96 Pulse Rate [Monitor] 88 Respiratory Rate 20 Blood Pressure 149/109 H Pulse Oximetry 99 12/24/20 22:00 12/24/20 23:43 12/25/20 00:00 Temperature 98.2 F Pulse Rate 95 92 77 Pulse Rate [Monitor] 77 Respiratory Rate 20 Blood Pressure 135/85 Pulse Oximetry 99 12/25/20 02:00 12/25/20 04:00 12/25/20 06:00 Temperature 98.1 F Pulse Rate 78 75 79 Pulse Rate [Monitor] 75 Respiratory Rate 20 Blood Pressure 123/79 Pulse Oximetry 97 12/25/20 08:00 12/25/20 08:40 12/25/20 09:14 Temperature 98.6 F Pulse Rate 105 H 87 91 Pulse Rate [Monitor] 75 Respiratory Rate 20 Blood Pressure 127/83 127/83 Pulse Oximetry 99 12/25/20 10:00 12/25/20 12:00 12/25/20 12:57 Temperature 97.4 F L Pulse Rate 84 71 Pulse Rate [Monitor] Respiratory Rate 18 Blood Pressure 125/86 125/86 Pulse Oximetry 99 Intake/Output Intake/Output: Intake & Output 12/22/20 12/23/20 12/24/20 12/25/20 23:59 23:59 23:59 23:59 Intake Total 2050 2440 3100 2360 Output Total 1700 1750 Balance 2050 2440 1400 610 Meds/Results Medications: Active Medications Generic Name Dose Route Start Last Admin Trade Name Freq PRN Reason Stop Dose Admin Chlordiazepoxide HCl 25 mg 12/25/20 12:00 12/25/20 12:51 Chlordiazepoxide (*Crx) 25 Mg Capsule PO 25 mg Q6HR CLAUDETTE Administration Cyanocobalamin 1,000 mcg 12/23/20 09:00 12/25/20 09:14 Cyanocobalamin 1,000 Mcg Tablet PO 1,000 mcg QAM CLAUDETTE Administration Folic Acid 1 mg 10
--- NOTE | 2020-12-25 16:48 | PM.IMPN ---
Progress Note: A&P Assessment and Plan (1) Thrombocytopenia: Code(s): D69.6 - Thrombocytopenia, unspecified Status: Acute Assessment and Plan: SEE BELOW (2) Erosive esophagitis: Code(s): K22.10 - Ulcer of esophagus without bleeding Status: Acute Assessment and Plan: SEE BELOW (3) Coffee ground emesis: Code(s): K92.0 - Hematemesis Status: Acute Assessment and Plan: SEE BELOW (4) Alcoholic hepatitis: Code(s): K70.10 - Alcoholic hepatitis without ascites Status: Acute (5) Tobacco abuse: Code(s): Z72.0 - Tobacco use Status: Chronic (6) Hepatitis C: Code(s): B19.20 - Unspecified viral hepatitis C without hepatic coma Status: Chronic (7) Alcohol withdrawal: Qualifiers: Complication of substance-induced condition: uncomplicated Qualified Code(s): F10.230 - Alcohol dependence with withdrawal, uncomplicated Code(s): F10.239 - Alcohol dependence with withdrawal, unspecified Status: Acute Subjective Date/time seen: 12/25/20 16:48 Interval history: 35-year-old male patient who has a history of alcoholism. The patient states that he drinks a pt of alcohol a day. He has been to alcohol rehab in the past. Admitted with dark varices bleeds sp EGD today ound to have ulcer. Review of Systems Review of Systems: All systems reviewed & are unremarkable except as noted in HPI and below Exam Const: General: ill appearing and other (Thin weak tired ) Orientation/consciousness: oriented to person HENMT: Head: normal to inspection Resp: Effort & Inspection: no respiratory distress Auscultation: no rhonchi and no wheezes Cardio: Rate: regular rate Rhythm: regular rhythm GI: Inspection: normal to inspection GI Palp: No abdominal tenderness, No Guarding due to palpation present (GI) and No Hepatomegaly present Auscultation: normal bowel sounds Neuro: General: oriented to person Objective Data Vital Signs Vital Signs: Vital Signs - 24 hr 12/24/20 18:00 12/24/20 20:00 12/24/20 21:33 Temperature 36.6 C Pulse Rate 97 88 96 Pulse Rate [Monitor] 88 Respiratory Rate 20 Blood Pressure 149/109 H Pulse Oximetry 99 12/24/20 22:00 12/24/20 23:43 12/25/20 00:00 Temperature 36.8 C Pulse Rate 95 92 77 Pulse Rate [Monitor] 77 Respiratory Rate 20 Blood Pressure 135/85 Pulse Oximetry 99 12/25/20 02:00 12/25/20 04:00 12/25/20 06:00 Temperature 36.7 C Pulse Rate 78 75 79 Pulse Rate [Monitor] 75 Respiratory Rate 20 Blood Pressure 123/79 Pulse Oximetry 97 12/25/20 08:00 12/25/20 08:40 12/25/20 09:14 Temperature 37.0 C Pulse Rate 105 H 87 91 Pulse Rate [Monitor] 75 Respiratory Rate 20 Blood Pressure 127/83 127/83 Pulse Oximetry 99 12/25/20 10:00 12/25/20 12:00 12/25/20 12:57 Temperature 36.3 C L Pulse Rate 84 71 Pulse Rate [Monitor] Respiratory Rate 18 Blood Pressure 125/86 125/86 Pulse Oximetry 99 12/25/20 16:00 Temperature 36.6 C Pulse Rate 80 Pulse Rate [Monitor] Respiratory Rate 18 Blood Pressure 121/85 Pulse Oximetry 98 Intake/Output Intake/Output: Intake & Output 12/22/20 12/23/20 12/24/20 12/25/20 23:59 23:59 23:59 23:59 Intake Total 2050 2440 3100 2360 Output Total 1700 2400 Balance 2050 2440 1400 -40 Meds/Results Medications: Active Medications Generic Name Dose Route Start Last Admin Trade Name Freq PRN Reason Stop Dose Admin Chlordiazepoxide HCl 25 mg 12/25/20 12:00 12/25/20 12:51 Chlordiazepoxide (*Crx) 25 Mg Capsule PO 25 mg Q6HR CLAUDETTE Administration Cyanocobalamin 1,000 mcg 12/23/20 09:00 12/25/20 09:14 Cyanocobalamin 1,000 Mcg Tablet PO 1,000 mcg QAM CLAUDETTE Administration Folic Acid 1 mg 12/23/20 09:00 12/25/20 09:14 Folic Acid 1 Mg Tablet PO 1 mg DAILY CLAUDETTE Administration Dextrose/Sodium Chloride 1,000 mls @ 100 mls/hr 12/23/20 23:50 12/25/20 14:10
[2020-12-25 18:17] LABS: Glucose Point of Care 119 mg/dl (65-105)
[2020-12-26] VITALS: BP 122/83; PULSE 93; RESP 18; TEMP 36.4; O2SAT 100
[2020-12-26] MEDS: chlordiazePOXIDE (*CRX) 25 MG CAPSULE PO ×3 (00:13→11:49)
[2020-12-26] MEDS: POTASSIUM/PHOSPHORUS/SODIUM 1.5 GM PACKET 1 PACKET PO ×3 (00:13→11:49)
[2020-12-26] MEDS: DEXTROSE 5%/0.9% SOD CHL 1,000 ML 100 ML IV CONT ×2 (00:15→10:41)
[2020-12-26 03:45] VITALS: PULSE 68
[2020-12-26 06:25] VITALS: BP 132/84; PULSE 71; RESP 18; TEMP 36.2; O2SAT 99
[2020-12-26 06:27] LABS: Hematocrit 32.2 % (42.0-52.0); Hemoglobin 11.3 g/dL (14.0-18.0); Immature Platelet Fraction Pct 9.6 % (0.9-11.2); Mean Corpuscular HGB Conc 35.1 g/dl (32-36); Mean Corpuscular Hemoglobin 34.5 pg (26-34); Mean Corpuscular Volume 98.2 fl (80-100); Platelet Count Result 90 k/mm3 (150-375); Red Blood Count 3.28 M/mm3 (4.6-6.20); White Blood Count 3.2 K/mm3 (4.5-10.0)
[2020-12-26 06:39] LABS: Alanine Aminotransferase 87 U/L (4-50); Albumin Level 3.5 g/dL (3.5-5.1); Alkaline Phosphatase 87 U/L (38-126); Anion Gap 6 mmol/L (8-16); Aspartate Amino Transferase 142 U/L (17-59); Bilirubin,Total 3.9 mg/dL (0.2-1.3); Blood Urea Nitrogen 2 mg/dL (9-20); Calcium 8.5 mg/dL (8.4-10.2); Carbon Dioxide 27 mmol/L (22-30); Chloride 103 mmol/L (98-107); Estimated CRCL calculation 114 ml/min; Estimated Glomerular Filt Rate > 60; Glucose 93 mg/dL (65-110); Potassium 3.6 mmol/L (3.4-5.0); Sodium 136 mmol/L (137-145)
[2020-12-26] MEDS: SUCRALFATE 1 GM TABLET PO ×2 (06:41→11:49)
[2020-12-26] MEDS: CYANOCOBALAMIN 1,000 MCG TABLET 1000 MCG PO (09:25)
[2020-12-26] MEDS: FOLIC ACID 1 MG TABLET PO (09:25)
[2020-12-26] MEDS: THIAMINE HCL 100 MG TABLET PO (09:25)
[2020-12-26 09:26] VITALS: PULSE 90
[2020-12-26] MEDS: METOPROLOL TARTRATE 25 MG TABLET PO (09:26)
[2020-12-26] MEDS: NICOTINE (*PBKC) 14 MG PATCH 1 PATCH TRANSDERM (09:26)
[2020-12-26] MEDS: PANTOPRAZOLE SODIUM IV 40 MG VIAL IV PUSH (09:27)
[2020-12-26] MEDS: THERAPEUTIC MULTIVITAMINS/MINERALS TAB (*BKC) 1 TABLET PO (09:28)
--- NOTE | 2020-12-26 11:15 | PCNFU ---
Nutrition Follow-Up Complete: Involuntary weight loss related to poor appetite (likely substance abuse related) as evidenced by patient reporting 35 pound weight loss x 6 months without trying. Goal: Patient to meet estimated nutritional needs. Patient is progressing towards goal. No new goal at this time. Pt current nutrition is a regular diet. He is receiving ensure BID providing an additional 220 calories and 9 grams of protein. Last recorded weight is 64.8 kg. Recommend re-weighing patient prior to discharge. Bowel Motility: + BM 12/22/2020 reported in admission assessment. Labs Reviewed: Hgb 11.3, Hct 32.2, Na 136, BUN 2.0 Meds Noted: Lopressor, Lorazepam, Folic Acid, Vitamin B-12 tablet, Vitamin B-1, Carafate, Multivitamin, Nicoderm Cq Additional Notes: Checked in with patient. He was up out of bed ready to go home. He stated he is being discharged today 12/26/2020. He stated his appetite is fantastic . He is receiving ensure twice a day and enjoying it. He says he plans on buying them once discharged so he can have them at home for future use. No skin breakdown at this time. When asked patient had no additional nutritional questions and/or concerns. Follow up every 5 days.
--- NOTE | 2020-12-26 12:00 | WPDGIPROGNO ---
Progress Note: A&P Assessment and Plan (1) Erosive esophagitis: Code(s): K22.10 - Ulcer of esophagus without bleeding Status: Acute Assessment and Plan: he can go home and continue with protonix twice daily quit drinking alcohol tolerating diet (2) Alcoholic hepatitis: Code(s): K70.10 - Alcoholic hepatitis without ascites Status: Acute Assessment and Plan: labs consistent with alcoholic hepatitis nutritional support, thiamine alcohol abstinence (3) Coffee ground emesis: Code(s): K92.0 - Hematemesis Status: Acute Assessment and Plan: no more episodes (4) Alcohol withdrawal: Qualifiers: Complication of substance-induced condition: uncomplicated Qualified Code(s): F10.230 - Alcohol dependence with withdrawal, uncomplicated Code(s): F10.239 - Alcohol dependence with withdrawal, unspecified Status: Acute (5) Thrombocytopenia: Code(s): D69.6 - Thrombocytopenia, unspecified Status: Acute Assessment and Plan: from alcohol but also wonder if he could have cirrhosis we can follow-up in office (6) Hepatitis C: Code(s): B19.20 - Unspecified viral hepatitis C without hepatic coma Status: Chronic Assessment and Plan: treatment naive follow-up in office if willing to get treatment Subjective Date/time seen: 12/26/20 12:00 Interval history: no acute issues, tolerating diet and going home later today Review of Systems Review of Systems: All systems reviewed & are unremarkable except as noted in HPI and below Exam Const: General: comfortable and no acute distress HENMT: General nose exam: Normal nares present Eyes: General: appearance normal, both eyes and all related structures Neck: Neck: no JVD Resp: Auscultation: clear to auscultation bilaterally Cardio: Rate: regular rate Rhythm: regular rhythm GI: Inspection: non-distended GI Palp: Yes Soft to palpation Skin: General skin exam: normal color Neuro: General: gait normal Speech: normal speech Extrem: General: normal to inspection Psych: Mental Status: mental status grossly normal Objective Data Vital Signs Vital Signs: Vital Signs - 24 hr 12/25/20 16:00 12/25/20 20:53 12/25/20 22:07 Temperature 98 F 97.6 F Pulse Rate 80 76 93 Pulse Rate [Radial Palpation] Respiratory Rate 18 18 Blood Pressure 121/85 122/83 Pulse Oximetry 98 100 12/25/20 23:47 12/26/20 00:00 12/26/20 03:45 Temperature 97.6 F Pulse Rate 93 Pulse Rate [Radial Palpation] 76 68 Respiratory Rate 18 Blood Pressure 122/83 Pulse Oximetry 100 12/26/20 06:25 12/26/20 09:26 Temperature 97.2 F L Pulse Rate 71 90 Pulse Rate [Radial Palpation] Respiratory Rate 18 Blood Pressure 132/84 Pulse Oximetry 99 Intake/Output Intake/Output: Intake & Output 12/23/20 12/24/20 12/25/20 12/26/20 23:59 23:59 23:59 23:59 Intake Total 2440 3100 2700 2120 Output Total 1700 2400 1000 Balance 2440 3822 368 1746 Meds/Results Radiology Results: ITS Impressions Abdomen Ultrasound 12/22/20 13:40 IMPRESSION: Nonspecific coarsened echotexture of the liver Sludge and/or debris in the dependent gallbladder; negative sonographic Henson's sign Chest/Abdomen/Pelvis CTA 12/22/20 17:40 IMPRESSION: 1. No pulmonary embolism. Sensitivity is significantly decreased in some of the subsegmental pulmonary arteries particularly at the lung bases due to primarily to motion artifact. 2. Comment diffuse wall thickening of the mid to distal esophagus consistent with esophagitis. 3. Diffuse hepatic steatosis. 4. Prostatomegaly. Labs Labs: Laboratory Results - last 24 hr 12/25/20 12/26/20 12/26/20 18:14 06:08 06:08 WBC 3.2 L RBC 3.28 L Hgb 11.3 L Hct 32.2 L MCV 98.2 MCH 34.5 H MCHC 35.1 RDW 12.0 Plt Count 90 L D MPV 11.0 H % Immature Plt Fraction 9.6 Sodium 136 L Potassium 3.6
--- NOTE | 2020-12-26 12:47 | PCOTNOTE ---
Attempted to see pt. this date at 12:48pm this date. Pt. refused OT this date stating I just ate and am tiered and also just so frustrated I want the to let me leave. I have had people in the parking lot since this morning waiting.
--- NOTE | 2020-12-26 13:09 | PM.DS ---
DS: Admitting Diagnosis Discharge Date 12/26/2020 Admitting Diagnosis Alcohol withdrawal DS: Discharge Diagnosis Discharge Diagnosis (1) Thrombocytopenia: Code(s): D69.6 - Thrombocytopenia, unspecified Status: Acute Assessment and Plan: SEE BELOW (2) Erosive esophagitis: Code(s): K22.10 - Ulcer of esophagus without bleeding Status: Acute Assessment and Plan: SEE BELOW (3) Coffee ground emesis: Code(s): K92.0 - Hematemesis Status: Acute Assessment and Plan: SEE BELOW (4) Alcoholic hepatitis: Code(s): K70.10 - Alcoholic hepatitis without ascites Status: Acute (5) Tobacco abuse: Code(s): Z72.0 - Tobacco use Status: Chronic (6) Hepatitis C: Code(s): B19.20 - Unspecified viral hepatitis C without hepatic coma Status: Chronic (7) Alcohol withdrawal: Qualifiers: Complication of substance-induced condition: uncomplicated Qualified Code(s): F10.230 - Alcohol dependence with withdrawal, uncomplicated Code(s): F10.239 - Alcohol dependence with withdrawal, unspecified Status: Acute Assessment and Plan: Alcohol abuse with alcohol withdrawal. SCHEDULED LIBRIUM. IV p.r.n. Ativan per [facility] protocol. in hospital. Esophagitis. With ulcer sp EGD under GI pt found to have a ulcer pt adviced no NSAIDS, no alcholol, no smoking. Transaminitis. Likely sequelae of history of alcohol abuse in conjunction with hepatitis-C. Hepatic steatosis Prostatomegaly. PSA level pending. Outpatient follow-up with Urology upon discharge Hepatitis-C. Outpatient follow-up with Gastroenterology for treatment upon discharge Polysubstance abuse. Patient has history of heroin use and current urine drug screen positive for benzodiazepines as well as cannabinoids Hypertension. Metoprolol 25 mg p.o. b.i.d. Smoker. Patient counseled regarding smoking cessation. Nicotine patch 14 mg daily Pancytopenia. Likely sequelae of history of alcohol abuse. We will monitor CBC and intermittently. Hyponatremia. Likely a sequelae of history of alcohol abuse/beer potomania. sodium is 136 now. Hypokalemia. Potassium is normal Elevated lipase. Clinically no signs/symptoms of pancreatitis. Radiographic studies did not do not demonstrate pancreatitis. Microscopic hematuria. Outpatient follow-up with Urology upon discharge DS: Summary Hospital Course Hospital Course: 35-year-old male patient who has a history of alcoholism. The patient states that he drinks a pt of alcohol a day. He has been to alcohol rehab in the past. Admitted with dark varices bleeds sp EGD today found to have ulcer. Time Spent with Patient Time attestation: Total time spent providing and/or coordinating discharge services:45 minutes on day of discharge Exam Const: General: ill appearing and other (Thin weak tired ) Orientation/consciousness: oriented to person HENMT: Head: normal to inspection Resp: Effort & Inspection: no respiratory distress Auscultation: no rhonchi and no wheezes Cardio: Rate: regular rate Rhythm: regular rhythm GI: Inspection: normal to inspection Auscultation: normal bowel sounds Neuro: General: oriented to person DS: Data Data Completed and Pending Pending studies at discharge: Pending at discharge 12/24/20 15:24 Surgical [PTH] Routine Labs on day of discharge: Labs from last 24 hours 12/26/20 12/26/20 12/25/20 06:08 06:08 18:14 WBC 3.2 L RBC 3.28 L Hgb 11.3 L Hct 32.2 L MCV 98.2 MCH 34.5 H MCHC 35.1 RDW 12.0 Plt Count 90 L D MPV 11.0 H % Immature Plt Fraction 9.6 Sodium 136 L Potassium 3.6 Chloride 103 Carbon Dioxide 27 Anion Gap 6 L BUN 2 L D Creatinine 0.70 Estim Creat Clear Calc 114 Estimated GFR > 60 Glucose 93 POC Capillary Glucose 119 H Calcium 8.5 Total Bilirubin 3.9 H AST 142 H ALT
[2020-12-27 17:31] LABS: PSA, Free 0.57 ng/mL; PSA, Total 1.1 ng/mL (<=4.0)
== END 2020-12-26 14:10 | disposition home or self-care (01) | DRG 243 ==
LOC: ANHED 18:41 → ANHIMU 23:11 → ANH3MEDSUR 12-26 13:08 → ANHIMU 12-27 14:18
PROVIDERS: Emergency Medicine; Internal Medicine; Internal Medicine Gastroenterology; Nurse Practitioner; Admitting Provider Internal Medicine Critical Care Medicine; Emergency Provider Emergency Medicine; Visit Provider Family Medicine
PROC: 0DJ08ZZ Inspection of Upper Intestinal Tract, Via Natural or Artificial Opening Endoscopic (ICD-10-PCS; CPT 43235; principal; 2020-12-24 15:45)
DX: K22.10 Ulcer of esophagus without bleeding (principal); F10.230 Alcohol dependence with withdrawal, uncomplicated; K70.10 Alcoholic hepatitis without ascites; K21.01 Gastro-esophageal reflux disease with esophagitis, with bleeding; K29.50 Unspecified chronic gastritis without bleeding; K76.0 Fatty (change of) liver, not elsewhere classified; I10 Essential (primary) hypertension; B19.20 Unspecified viral hepatitis C without hepatic coma; D61.818 Other pancytopenia; E87.6 Hypokalemia; R31.29 Other microscopic hematuria; F17.210 Nicotine dependence, cigarettes, uncomplicated; E83.39 Other disorders of phosphorus metabolism
CPT/HCPCS: 36415; 71275; 74177; 76705; 80053; 80307; 81001; 82248; 82607; 82728; 82746; 82948; 83540; 83550; 83605; 83615; 83690; 83735; 84100; 84153; 84154; 84439; 84443; 85025; 85027; 85055; 85610; 85730; 86140; 87040; 88305; 93005; 96361; 96365; 96375; 96376; 97162; 97165; 99285; A9270; C9113; J1200; J2060; J2405; J2543; J2765; J3360; J3411; J3475; J3480; J7030; J7042; J7120; Q9967